=== PATIENT | female | born 1930 | race African-American/Black ===

== ENCOUNTER 2017-06-08 13:38 | Inpatient (IN) | payer MEDICARE, MEDICAID ==
[2017-06-08 17:02] LABS: Troponin I 0.033 ng/mL (< 0.028)
[2017-06-08 19:05] LABS: Troponin I 0.038 ng/mL (< 0.028)
--- NOTE | 2017-06-08 20:39 | CON ---
CARDIOLOGY CONSULTATION NOTE DATE OF CONSULTATION: 06/08/2017 REASON FOR CONSULTATION: Heart failure. PRIMARY ACCORDION REPAIRER: Dr. Guadalupe St. HISTORY OF PRESENT ILLNESS: Ms. Connelly is a very pleasant 87-year-old -Niuean female who com es to the hospital for shortness of breath. She has been short of breath, progressively getting wors e for the past 2 weeks per the family's report. They brought her in today as she was much more miguelito rgic and her breathing was much more labored. She was seen and chest x-ray showed she is in volume o verload as well as on physical exam, she was given a dose of Lasix and Cardiology is being consulted for this. She is a patient of Dr. St; he follows her for presence of a pacemaker. The last time , she was seen was actually back in 10/2016 and had a 1 year followup appointment with an echo. She is followed for blood pressure as well and she has runs of nonsustained VT that are treated with beta -hermann and moderate mitral regurgitation. Last echo on our system was in 2012 and she had normal L V function and mild to moderate MR. She was scheduled to have one in 10/2017. She denies any chest pain, tightness or pressure. Shortness of breath is better after some Lasix. PAST MEDICAL HISTORY: 1. Hypertension. 2. Former tobacco use. 3. Permanent pacemaker placement secondary to complete heart block. 4. History of pulmonary embolisms. 5. History of nonsustained ventricular tachycardia. ALLERGIES: VINCENT INHIBITORS. OUTPATIENT MEDICATIONS: Include; 1. Naproxen. 2. Omeprazole. 3. Hydralazine 25 mg b.i.d. 4. Carvedilol 25 mg b.i.d. 5. Furosemide 20 mg daily. 6. Amlodipine 10 mg a day. 7. Potassium chloride 10 mEq daily. SOCIAL HISTORY: No alcohol, tobacco or drugs. FAMILY HISTORY: Noncontributory. REVIEW OF SYSTEMS: A 12-point review of systems was done and is all negative unless stated in the hi story of present illness PHYSICAL EXAMINATION: VITAL SIGNS: Temperature 98.1, pulse 83, respiratory rate 14, satting 82% on room air, much better n ow on 2-liter nasal cannula, 96%. GENERAL: Awake, alert and oriented x3, in no distress. HEENT: Normocephalic and atraumatic. NECK: Supple. LUNGS: Have mild crackles at bilateral bases. CARDIOVASCULAR: S1, S2. No S3 or S4. ABDOMEN: Soft. Positive bowel sounds. EXTREMITIES: No edema. SKIN: Warm and dry. LABORATORY WORK: Reviewed. White count of 7.4, hemoglobin of 8.7, hematocrit of 27 and platelet cou nt of 216. Chemistry with a BUN of 38, creatinine of 1.4, BNP is 1169. Troponin is 0.02, 0.03, inde terminate range. Albumin of 2.4, globulin of 5.6, normal sodium and potassium. UA; trace ketones, s mall bilirubin, 4.0 urobilinogen and 1+ bacteria. IMAGING DATA: Chest x-ray was reviewed and showed interstitial prominence of the perihilar regions i n both lung bases, which could be chronic or superimposed edema or inflammatory changes. ASSESSMENT: 1. Acute on chronic diastolic heart failure. 2. Mild to moderate mitral regurgitation on last evaluation. PLAN: 1. Continue IV diuresis. I would give her Lasix 40 mg IV b.i.d. 2. We will get an echocardiogram to assess what her mitral valve is doing and what her LV function i s now. 3. Further recommendations after results of echocardiogram.
[2017-06-08] MEDS ORDERED: Ondansetron ODT 4 MG TAB SL PRN (21:54)
[2017-06-08] MEDS ORDERED: Acetaminophen 325 MG TAB PO PRN ×2 (21:54→23:18)
[2017-06-08] MEDS ORDERED: Ondansetron HCl/PF 4 MG/2 ML Vial IVP PRN ×2 (21:54→23:18)
[2017-06-08 22:39] LABS: Troponin I 0.039 ng/mL (< 0.028)
[2017-06-08] MEDS ORDERED: Ondansetron ODT 4 MG TAB PO PRN (23:18)
[2017-06-08] MEDS ORDERED: Bisacodyl 5 MG TAB PO PRN (23:18)
[2017-06-08] MEDS ORDERED: Acetaminophen 650 MG Suppository PR PRN (23:18)
[2017-06-08] MEDS ORDERED: Docusate 100 MG CAP PO SCH (23:45)
[2017-06-08] MEDS ORDERED: Carvedilol 25 MG TAB PO SCH (23:45)
[2017-06-08] MEDS ORDERED: hydrALAZINE 25 MG TAB PO SCH (23:45)
[2017-06-09 05:14] LABS: #Eosinphils 0.2 thou/uL (0.0-0.7); #Monocytes 0.6 thou/uL (0.11-0.59); #Neutrophils 4.9 thou/uL (1.40-6.50); %Basophils 0.4 % (0.0-1.0); %Eosinophils 3.2 % (0.0-10.0); %Lymphocytes 14.3 % (21.0-51.0); %Monocytes 9.1 % (0.0-10.0); %Neutrophils 73.1 % (42.0-75.0); Mean Corpuscular HGB CONC 34.9 g/dL (32.0-36.0); Mean Corpuscular Hemoglobin 32.8 pg (27.0-31.0); Mean Corpuscular Volume 94.1 fl (81.0-99.0); Mean Platelet Volume 6.4 fL (7.4-10.4); Platelet Count 204 thou/uL (130-400); Red Blood Cell (RBC) Count 2.75 mill/uL (4.20-5.40); White Blood Cell (WBC) Count 6.7 thou/uL (4.8-10.8)
[2017-06-09 05:43] LABS: Anion Gap 13 mmol/L (10-20); BUN (Urea Nitrogen) 36 mg/dL (9.8-20.1); Calc. Creatinine Clearance 0 mL/min (70-130); Calcium 8.8 mg/dL (7.8-10.44); Carbon Dioxide 22 mmol/L (23-31); Chloride 108 mmol/L (98-107); Estimated GFR-MDRD 52; Glucose 92 mg/dL (83-110); Potassium 3.9 mmol/L (3.5-5.1); Sodium 139 mmol/L (136-145)
[2017-06-09] MEDS ORDERED: Furosemide 20 MG/2 ML VIAL SLOW IVP SCH (06:00)
[2017-06-09] MEDS ORDERED: Furosemide 40 MG/4 ML VIAL SLOW IVP SCH (06:00)
--- NOTE | 2017-06-09 06:14 | HP ---
PRIMARY CARE PHYSICIAN: Dr. Whitman CHIEF COMPLAINT: Shortness of breath. HISTORY OF PRESENT ILLNESS: This is an 87-year-old -Prydeinig female with a known history of h eart disease of some sort with a pacemaker. She has seen Dr. Cruz and Dr. St previously and then years ago she had a problem with swelling that resolved with some furosemide. She reports that she was in her normal state of health until about a month ago she started having swelling in her feet, sh ortness of breath. She came into the [place] emergency room on the 05/06 over a month ago and was di agnosed with congestive heart failure. She was given daily furosemide and told to follow up with Dr. Whitman in the outpatient. She took the furosemide daily, the month supply and had resolution of t he swelling in her lower extremities, but she had persistence and recently worsening of the shortness of breath with activity or with lying down. So she came to the emergency room again today and she w as unable to follow with Dr. Whitman as she apparently is out with the flu right now. PAST MEDICAL HISTORY: 1. Congestive heart failure that had resolved with pacemaker placement. 2. Gastroesophageal reflux disease. 3. Hypertension. 4. Osteoarthritis. PAST SURGICAL HISTORY: 1. Hysterectomy. 2. Pacemaker placement. SOCIAL HISTORY: She used to smoke many, many years ago, unable to remember exactly when she quit, bu t it has been a very long time now. No alcohol or illicit drug use. She lives at home with her fami ly. FAMILY MEDICAL HISTORY: Significant for cardiac disease. ALLERGIES: LISINOPRIL causes angioedema. CURRENT MEDICATIONS: 1. Hydralazine 25 mg twice a day. 2. Amlodipine 10 mg daily. 3. Omeprazole 20 mg 2 tablets daily. 4. Carvedilol 25 mg twice a day. 5. Potassium chloride 10 mEq daily. 6. Naproxen 500 mg twice a day. 7. Furosemide 20 mg daily given from the emergency room last month. REVIEW OF SYSTEMS: Constitutional: No fevers, no chills. She has had some warm flashes with her shortness of breath. Eyes: No double vision or blurred vision. ENT: She has had some occasional drainage and congestion . No sore throat. Nothing specifically bad right now. Cardiovascular: She had a little bit of alexandrea st pain last week, none currently. No palpitations or racing heart. Pulmonary: Minimal cough produ ctive of clear sputum and shortness of breath as per HPI, mostly with exertion, some with lying flat. Gastrointestinal: No abdominal pain, no nausea, vomiting, no diarrhea or constipation. Genitourin haydee: No dysuria or hematuria. Musculoskeletal: No muscle aches or joint pains beyond her typical a rthritis pains. Skin: No rashes or other lesions that she has noticed. Neurologic: No numbness, t ingling or focal weakness, just feeling generalized weakness. PHYSICAL EXAMINATION: VITAL SIGNS: Blood pressure 128/85, pulse 83, respirations 14, temperature 98.1, O2 sat initially 82 % on room air. This came up to 99% on 3 liter nasal cannula. GENERAL: This is a well-developed elderly -Prydeinig female in no apparent distress, on oxygen . HEENT: Pupils equal, round, and reactive to light. Oropharynx clear without lesions, erythema or ex udate. NECK: Supple, no lymphadenopathy, no thyroid nodules or enlargement, no JVD. HEART: Regular rate and rhythm, no murmurs, rubs or gallops. LUNGS: She has some mild crackles in bilateral bases and decent air movement throughout. ABDOMEN: Soft, nontender to palpation, normoactive bowel sounds, no hepatosplenomegaly or other mass es. EXTREMITIES: No clubbing, cyanosis or edema. SKIN: No rashes or other lesions. NEUROLOGIC: She has intact strength in all extremities and no facial droop. LABORATORY DATA: CBC with a hemoglobin of 8.7, which is fairly stable for her MCV is normal. Comple te metabolic panel was notable for a carbon dioxide of 22, BUN of 38, creatinine of 1.4. This is up from 1.01 earlier last month. Glucose 118. Her liver functions are grossly normal except for a low albumin of 2.4. Brain natriuretic peptide is elevated at 1169. This is up from 978 at the beginning of May. Her cardiac marker sets were indeterminate. Urinalysis showed trace ketones, small le ukocyte esterase, but no white blood cells, it was dirty urine with squamous epithelial and a little bit of bacteria. X-ray, I did review the x-ray done in the emergency room along with the radiologist 's report. It does show stable appearance of the chest with interstitial prominence in the perihilar regions in both lung bases, may be all chronic in nature, but there is the possibility of a superimp osed acute edema that cannot be excluded. Her pacemaker is visualized. ASSESSMENT: 1. Acute on chronic congestive heart failure. We consulted Dr. Murphy. We will get an echocardiogr am. We will start her on Lasix 20 mg IV twice a day and will resume her home medications. 2. Acute renal failure, mild bump in creatinine, likely due to her Lasix use; however, she still nicole ears of volume overloaded in her chest x-ray and may go ahead and continue IV diuresis here, but we w ill keep a close eye on the creatinine to make sure does not too high. We will hold off on her napro xen. 3. Hypertension. We will resume patient's antihypertensive medications, but will hold them if her b lood pressure drops too low. Currently, she has been running in the 110s and 120s in the emergency r oom, so will go ahead and give them to her for now. Hydralazine may need to be held if blood pressur e drops too much. 4. Gastrointestinal prophylaxis. Put the patient on Pepcid twice a day in the hospital. 5. Deep venous thrombosis prophylaxis. Put patient on Lovenox and sequential compression devices wh ile on bed and we will have physical therapy get patient ambulating. CODE STATUS: I did discuss with the patient. She is FULL CODE. Should she be incapacitated, her risa Scott would be her medical power of deputy prosecuting attorney.
[2017-06-09] MEDS: Carvedilol 25 MG TAB PO SCH ×3 (07:00→21:04)
[2017-06-09] MEDS: Docusate 100 MG CAP PO SCH ×3 (07:01→21:05)
[2017-06-09] MEDS: hydrALAZINE 25 MG TAB PO SCH ×3 (07:02→21:04)
--- NOTE | 2017-06-09 08:47 | PDOC.PN ---
- Subjective Encounter Start Date: 06/09/17 Encounter Start Time: 08:46 Subjective: Seen and examined feeling better - Objective Resuscitation Status: Resuscitation Status FULL:Full Resuscitation Vital Signs & Weight: Vital Signs (12 hours) Temp Pulse Resp BP BP Pulse Ox 06/09/17 07:02 85 06/09/17 03:52 98.4 F 85 24 H 109/58 L 06/09/17 00:55 83 121/56 L 06/08/17 21:00 98.0 F 83 18 121/56 L 96 Weight Weight 128 lb 9.6 oz Result Diagrams: 06/09/17 04:32 06/09/17 04:32 Phys Exam - Physical Examination Constitutional: NAD HEENT: PERRLA, moist MMs, sclera anicteric, TM's clear Neck: no nodes, no JVD, supple, full ROM Respiratory: no wheezing, no rales, no rhonchi, clear to auscultation bilateral Cardiovascular: RRR, no significant murmur, no rub Gastrointestinal: soft, non-tender, no distention, positive bowel sounds Musculoskeletal: no edema, pulses present Dx/Plan - Plan plan discussed w/ family, PT/OT, high school social studies teacher, respiratory therapy, DVT proph w/lovenox Diuresis -: Cardiology following --repeat Echo pending * .
[2017-06-09] MEDS: Potassium Chloride 10 MEQ TAB PO SCH (09:06)
[2017-06-09] MEDS: Enoxaparin Sodium 40 MG/0.4 ML SYRINGE SC SCH (09:07)
[2017-06-09] MEDS: Amlodipine 10 MG TAB PO SCH (09:07)
[2017-06-09 13:36] LABS: Actual Bicarbonate (HCO3a) 22.2 mEq/L (22-26); CO2 Tension 35.1 mmHg (35.0-45.0); Calcium, Ionized 1.2 mmol/L (1.12-1.30); Hematocrit-ABG 26.6 % (36.0-47.0); Hemoglobin (Hb) 8.1 g/dL (12.0-16.0); O2 Tension (PaO2) 68.2 mmHg (80.0-100.0); pH, Arterial 7.42 (7.35-7.45)
[2017-06-09 13:38] LABS: Puncture Site RBA
[2017-06-09 13:39] LABS: ALV-art Gradient 246.925 (0-20)
--- NOTE | 2017-06-09 14:28 | RAD ---
CHEST ONE VIEW: Comparison: 06-08-17 History: Dyspnea. FINDINGS: Re-demonstration of left sided transvenous pacemaker with lead position, unchanged. There is atherosc lerosis of the aorta. Heart is enlarged. There are patchy interstitial and alveolar infiltrates. No s ignificant pleural fluid. No pneumothorax. No osseous abnormalities. IMPRESSION: Multilobar infiltrate. Multilobar pneumonia. Continued surveillance. POS: [facility]
[2017-06-09] MEDS: Furosemide 40 MG/4 ML VIAL SLOW IVP SCH (15:31)
--- NOTE | 2017-06-09 15:36 | PDOC.CTH ---
Cardiology Progress Note - Subjective She is hypoxic but her breathing she states is similar to yesterday. She developed a low grade fever. - Objective Vital Signs Temp Pulse Pulse Pulse Resp BP BP 06/09/17 12:40 06/09/17 11:45 100.0 F H 73 14 06/09/17 11:44 76 84 100/74 06/09/17 09:06 85 115/56 L 06/09/17 08:00 99.8 F H 85 16 06/09/17 07:02 85 06/09/17 03:52 98.4 F 85 24 H BP BP Pulse Ox 06/09/17 12:40 79 L 06/09/17 11:45 109/53 L 90 L 06/09/17 11:44 112/57 L 06/09/17 09:06 06/09/17 08:00 115/56 L 90 L 06/09/17 07:02 06/09/17 03:52 109/58 L Weight 128 lb 12.8 oz 06/08/17 06/09/17 06/10/17 06:59 06:59 06:59 Intake Total 312 Balance 312 - Physical Examination General/Neuro: alert & oriented x3 Neck: no JVD present Lungs: unlabored respirations Heart: RRR Abdomen: NT/ND Extremities: other: (no edema.) - Telemetry Telemetry Rhythm: NSR - Labs Result Diagrams: 06/09/17 04:32 06/09/17 04:32 Troponin/CKMB Troponin I 0.039 ng/mL (< 0.028) H 06/08/17 22:01 - Assessment/Plan 1. Acute on chronic diastolic heart failure. 2. Hypoxia, fever, possible pneumonia PLAN: - CXR - Continue IV diuresis. - Abx per primary team.
[2017-06-09] MEDS ORDERED: cefTRIAXone\\ROCEPHIN 1 GM in Sodium Chloride 0.9% 100 ML IVPB SCH (17:45)
[2017-06-09] MEDS: cefTRIAXone\\ROCEPHIN 1 GM, Syringe 0.4 ML in Sterile Water 9.6 ML SLOW IVP SCH (18:18)
[2017-06-10] MEDS: Furosemide 40 MG/4 ML VIAL SLOW IVP SCH ×2 (05:12→13:47)
[2017-06-10] MEDS: hydrALAZINE 25 MG TAB PO SCH ×2 (08:56→20:29)
[2017-06-10] MEDS: Potassium Chloride 10 MEQ TAB PO SCH (08:56)
[2017-06-10] MEDS: Enoxaparin Sodium 40 MG/0.4 ML SYRINGE SC SCH (08:57)
[2017-06-10] MEDS: Carvedilol 25 MG TAB PO SCH ×2 (08:57→20:28)
[2017-06-10] MEDS: Amlodipine 10 MG TAB PO SCH (08:57)
[2017-06-10] MEDS: Azithromycin 250 MG TAB PO SCH (08:57)
[2017-06-10] MEDS: Docusate 100 MG CAP PO SCH ×2 (09:00→20:28)
--- NOTE | 2017-06-10 11:23 | PDOC.PN ---
- Subjective Encounter Start Date: 06/10/17 Encounter Start Time: 11:22 Subjective: seen and examined feeling better - Objective Resuscitation Status: Resuscitation Status FULL:Full Resuscitation Vital Signs & Weight: Vital Signs (12 hours) Temp Pulse Pulse Pulse Pulse Pulse Resp 06/10/17 09:05 82 70 88 86 06/10/17 08:57 82 06/10/17 08:56 82 06/10/17 07:05 99.4 F 82 18 06/10/17 04:00 98.2 F 75 16 06/10/17 00:00 BP BP BP BP BP BP Pulse Ox 06/10/17 09:05 108/57 L 129/58 L 116/52 L 110/69 06/10/17 08:57 124/58 L 06/10/17 08:56 124/58 L 06/10/17 07:05 124/58 L 92 L 06/10/17 04:00 113/52 L 95 06/10/17 00:00 98 Pulse Ox Pulse Ox Pulse Ox Pulse Ox 06/10/17 09:05 90 L 94 L 90 L 91 L 06/10/17 08:57 06/10/17 08:56 06/10/17 07:05 06/10/17 04:00 06/10/17 00:00 Weight Weight 129 lb 9.6 oz I&O: 06/09/17 06/10/17 06/11/17 06:59 06:59 06:59 Intake Total 312 100 Output Total 225 Balance 312 -125 Result Diagrams: 06/09/17 04:32 06/09/17 04:32 Phys Exam - Physical Examination Constitutional: NAD HEENT: PERRLA, moist MMs, sclera anicteric, TM's clear, oral pharynx no lesions Neck: no nodes, no JVD, supple, full ROM Respiratory: no wheezing, no rales, no rhonchi, clear to auscultation bilateral Cardiovascular: RRR, no significant murmur, no rub Gastrointestinal: soft, non-tender, no distention, positive bowel sounds Musculoskeletal: no edema, pulses present Dx/Plan (1) CHF (congestive heart failure) Code(s): I50.9 - HEART FAILURE, UNSPECIFIED Status: Acute (2) Pneumonia Code(s): J18.9 - PNEUMONIA, UNSPECIFIED ORGANISM Status: Acute (3) Advanced age Code(s): R54 - AGE-RELATED PHYSICAL DEBILITY Status: Acute - Plan plan discussed w/ family, continue antibiotics, PT/OT, social work case manager, respiratory therapy Diuresis -: Appreciate Cardiology input * .
[2017-06-10] MEDS: cefTRIAXone\\ROCEPHIN 1 GM, Syringe 0.4 ML in Sterile Water 9.6 ML SLOW IVP SCH (19:47)
[2017-06-11] MEDS ORDERED: ISOVUE-370 76%-LOCM 1 ML ONE (06:30)
[2017-06-11] MEDS: Furosemide 40 MG/4 ML VIAL SLOW IVP SCH (06:52)
--- NOTE | 2017-06-11 07:36 | PDOC.PN ---
- Subjective Encounter Start Date: 06/11/17 Encounter Start Time: 07:35 Subjective: Seen and examined feeling better - Objective Resuscitation Status: Resuscitation Status FULL:Full Resuscitation Vital Signs & Weight: Vital Signs (12 hours) Temp Pulse Resp BP BP Pulse Ox 06/11/17 07:23 97.5 F L 77 18 111/57 L 93 L 06/11/17 04:00 97.7 F 69 18 115/53 L 93 L 06/11/17 00:00 97.4 F L 75 16 102/54 L 94 L 06/10/17 20:29 85 129/56 L Weight Weight 130 lb I&O: 06/10/17 06/11/17 06/12/17 06:59 06:59 06:59 Intake Total 100 150 Output Total 225 Balance -125 150 Result Diagrams: 06/09/17 04:32 06/09/17 04:32 Phys Exam - Physical Examination Constitutional: NAD HEENT: PERRLA, moist MMs, sclera anicteric, TM's clear Neck: no nodes, no JVD, supple, full ROM Respiratory: no wheezing, no rales, no rhonchi, clear to auscultation bilateral Cardiovascular: RRR, no significant murmur, no rub Gastrointestinal: soft, non-tender, no distention, positive bowel sounds Musculoskeletal: no edema, pulses present Dx/Plan (1) CHF (congestive heart failure) Code(s): I50.9 - HEART FAILURE, UNSPECIFIED Status: Acute (2) Pneumonia Code(s): J18.9 - PNEUMONIA, UNSPECIFIED ORGANISM Status: Acute (3) Advanced age Code(s): R54 - AGE-RELATED PHYSICAL DEBILITY Status: Acute - Plan plan discussed w/ family, continue antibiotics, PT/OT, social studies department chair, respiratory therapy Repeat CXR in am -: De-escalate diuresis -: Dispo planning * .
[2017-06-11] MEDS: Docusate 100 MG CAP PO SCH ×2 (08:33→20:55)
[2017-06-11] MEDS: Carvedilol 25 MG TAB PO SCH ×2 (08:33→20:55)
[2017-06-11] MEDS: Potassium Chloride 10 MEQ TAB PO SCH (08:33)
[2017-06-11] MEDS: Azithromycin 250 MG TAB PO SCH (08:34)
[2017-06-11] MEDS: Furosemide 40 MG TAB PO SCH ×2 (08:39→14:58)
[2017-06-11] MEDS: Enoxaparin Sodium 30 MG/0.3 ML SYRINGE SC SCH (08:39)
[2017-06-11] MEDS: Amlodipine 10 MG TAB PO SCH (11:56)
[2017-06-11] MEDS: hydrALAZINE 25 MG TAB PO SCH (11:57)
--- NOTE | 2017-06-11 12:39 | CON ---
DATE OF CONSULTATION: 06/10/2017 SERVICE: Pulmonary Medicine. REASON FOR CONSULTATION: Pulmonary hypertension. HISTORY OF PRESENT ILLNESS: The patient is an 87-year-old -[place] female. She was in her usual state of health until a week prior to admission when she started having a viral prodrome. She had some cough and congestion. She felt feverish, but did not suffer any fevers. She had orthopnea as well as dyspnea on exertion. She presented to the hospital, had findings consistent with volume overload. As additional information came back, it became increasingly clear that she was suffering primarily from right-sided heart dysfunction with severe pulmonary hypertension. The left ventricle was fairly preserved. She currently denies any fevers, chills, nausea, vomiting or chest discomfort. Otherwise, she is returning to her usual state of health. At baseline, she remains quite weak. She is able to get up and walk around, but does not do many of her activities of daily living. Recently, she has been in and out of the hospital with increasing weakness. PAST MEDICAL HISTORY: 1. Gastroesophageal reflux disease. 2. Hypertension. 3. Osteoarthritis. 4. Pulmonary hypertension, severe. PAST SURGICAL HISTORY: 1. Hysterectomy. 2. Pacemaker placement. SOCIAL HISTORY: She has a greater than [id number] history of smoking, but discontinued this habit over 10 years ago. She has no alcohol or illicit drug use. She has no exposures to chemicals, dust asbestos or tuberculosis. FAMILY HISTORY: Noncontributory. ALLERGIES: LISINOPRIL causes angioedema. MEDICATIONS: List of her inpatient medications were reviewed. No updates were made at this time. REVIEW OF SYSTEMS: Including general, head, ears, eyes, nose, throat, cardiovascular, respiratory, GI, , musculoskeletal, neurologic and skin is negative except as mentioned in the HPI. PHYSICAL EXAMINATION: VITAL SIGNS: Afebrile, pulse 77, blood pressure 111/57, respirations 18, saturation 93% on 40% FiO2. GENERAL: The patient is awake and alert. She is in no apparent distress. LUNGS: Decent air entry. There is no prolonged expiratory phase or wheezing. Crackles are present bilaterally. HEART: Normal rate, regular. ABDOMEN: Soft, nontender, nondistended. Bowel sounds are positive. MUSCULOSKELETAL: No cyanosis or clubbing. There is no pitting in the bilateral lower extremities. NEUROLOGIC: Grossly nonfocal. LABORATORY DATA: WBC 6.7, hemoglobin 9.0, platelets 204,000. D-dimer 2.84. PH 7.42, pCO2 of 53, pO2 of 68.2. Creatinine 1.19. Basic metabolic profile is otherwise unremarkable. Troponin is stable at 0.039. IMAGING: Chest x-ray demonstrates patchy alveolar infiltrate in the bilateral lung hill. There is also increased interstitial markings. The heart is generous in size. This is a portable film; however. There is a widened carinal angle suggestive of left atrial enlargement and/or mediastinal lymphadenopathy. Dual lead pacemaker is in good position. ASSESSMENT: 1. Acute hypoxic respiratory failure. 2. Pulmonary infiltrate. 3. Pulmonary hypertension. DISCUSSION AND PLAN: The patient has infiltrate. Typically, this will be caused by pulmonary hypertension in the left. The patient is having such severe right heart dysfunction that is preventing the filling of the left heart. It is interesting that her left atrium is dilated and she has mitral annular calcification. I do wonder whether or not there is a significant component of mitral stenosis here. That being said, pulmonary hypertension is quite impressive. We will go ahead and put her through a workup with HIV, rheumatoid factor, and CHAZ profile. This will be added to the morning laboratories. Because of her recent viral prodrome, we will get a respiratory virus panel to see whether or not there is some acute inflammatory process happening in her lungs. If she has shift in white blood cell count or develops any other signs of increasing sepsis syndrome, empiric antibiotics directed at lung pathology is warranted. Her creatinine is improving. As such, we will move forward a CT PE protocol. We are really looking for chronic thromboembolic disease. I would do a VQ scan, but the infiltrates on the chest x-ray preclude this. Pulmonary will continue to follow. The patient remains in house. [facility]
--- NOTE | 2017-06-11 15:49 | CT ---
CTA CHEST WITH 3D VOLUME RENDERING: Clinical history: Pulmonary hypertension. Progressive shortness of breath. FINDINGS: There are abnormal soft tissue opacities which encroach upon and invade the pulmonary arterial system , notably involving the proximal aspect of the main left pulmonary artery as well as segmental divisi on of the left pulmonary arteries serving the left upper and superior segment left lower lobe. There is also nodular irregularity along the posterior confines of the distal main left pulmonary artery. A djacent these areas of apparently invading soft tissue of the pulmonary arterial wall, there are nodu lar areas of soft tissue density of the mediastinum and left hilum indicative of adenopathy, although difficult to reliably discern due to the arterial phase of enhancement. The pulmonary arteries are p rominent in size, with the pulmonary trunk demonstrating larger caliber than the adjacent aorta which does correlate to the provided clinical setting of pulmonary arterial hypertension. There is extensive pulmonary parenchymal consolidation with areas of dense consolidation containing a ir bronchograms bilaterally as well as diffuse ground glass alveolar opacities and areas of interstit ial septal thickening throughout each lung. There is trace pleural fluid bilaterally superimposed upo n areas of pleural thickening/irregularity within each hemithorax. There is no pneumothorax. The trac heal bronchial air column is grossly patent, centrally. There is diffuse vascular calcification. No scattered osseous degenerative change present. Within the imaged upper abdomen, there is cyst form ation at the kidneys bilaterally, incompletely assessed. Splenic arterial calcification. There is con trast opacification of the suprahepatic IVC and hepatic veins indicative of right heart strain with r esultant passive congestion. There is enlargement of cardiac chambers. Mild pericardial fluid is present. There is a stable area o f focal eventration of the left lateral aspect of the aortic arch. IMPRESSION: 1. Areas of eccentric soft tissue, lobular filling defect of the pulmonary arterial system as discuss ed above which are concerning for entities such as tumor invasion/tumor embolus given the above descr ibed concommenent findings. 2. Extensive multifocal consolidation as above favoring atypical multi focal bilateral pneumonia. 3. Telephone call of findings placed to the patient's strap stitcher, Dr. Jeffery Montoya at 1345 hours 118. POS: [facility]
[2017-06-11] MEDS: cefTRIAXone\\ROCEPHIN 1 GM, Syringe 0.4 ML in Sterile Water 9.6 ML SLOW IVP SCH (17:52)
[2017-06-12 04:59] LABS: #Eosinphils 0.1 thou/uL (0.0-0.7); #Lymphocytes 0.9 thou/uL (1.20-3.40); #Monocytes 0.6 thou/uL (0.11-0.59); #Neutrophils 5.9 thou/uL (1.40-6.50); %Basophils 0.2 % (0.0-1.0); %Eosinophils 1.5 % (0.0-10.0); %Lymphocytes 11.8 % (21.0-51.0); %Monocytes 7.5 % (0.0-10.0); Hemoglobin 7.8 g/dL (12.0-16.0); Mean Corpuscular HGB CONC 32.5 g/dL (32.0-36.0); Mean Corpuscular Hemoglobin 30.7 pg (27.0-31.0); Mean Corpuscular Volume 94.5 fl (81.0-99.0); Mean Platelet Volume 6.8 fL (7.4-10.4); Platelet Count 210 thou/uL (130-400); RBC Distribution Width 12.9 % (11.5-14.5); Red Blood Cell (RBC) Count 2.54 mill/uL (4.20-5.40); White Blood Cell (WBC) Count 7.5 thou/uL (4.8-10.8)
[2017-06-12 05:33] LABS: Anion Gap 15 mmol/L (10-20); BUN (Urea Nitrogen) 53 mg/dL (9.8-20.1); Calc. Creatinine Clearance 24 mL/min (70-130); Calcium 8.9 mg/dL (7.8-10.44); Carbon Dioxide 23 mmol/L (23-31); Chloride 104 mmol/L (98-107); Estimated GFR-MDRD 37; Glucose 100 mg/dL (83-110); Sodium 138 mmol/L (136-145)
[2017-06-12 05:53] LABS: HIV (1/2) Antibody/Antigen Non-Reactive (NonReactive); HIV 1/2 INDEX 0.07 S/CO (<1.00)
[2017-06-12] MEDS: Furosemide 40 MG TAB PO SCH ×2 (08:25→14:14)
[2017-06-12] MEDS: Potassium Chloride 10 MEQ TAB PO SCH (08:25)
[2017-06-12] MEDS: Carvedilol 25 MG TAB PO SCH (08:25)
[2017-06-12] MEDS: Azithromycin 250 MG TAB PO SCH (08:25)
[2017-06-12] MEDS: Docusate 100 MG CAP PO SCH ×2 (08:26→20:30)
[2017-06-12] MEDS: Enoxaparin Sodium 30 MG/0.3 ML SYRINGE SC SCH (08:26)
--- NOTE | 2017-06-12 08:42 | RAD ---
PA AND LATERAL CHEST XRAY: DATE: 06/12/17. HISTORY: Pneumonia. COMPARISON: 06/09/17. FINDINGS: Dual-lead left subclavian cardiac pacemaking device remains in place and unchanged in position. Ther e are increased interstitial and patchy parenchymal opacities seen throughout the lungs bilaterally, greater in the mid lung zones. Opacities in the mid lung zones do appear increased from the prior st udy. Findings are again worrisome for bilateral pneumonia, and atypical pneumonia is a possibility. Cardiac silhouette does appear enlarged. Vascular calcification is seen in the thoracic aorta. The re is osteopenia. No other interval change. IMPRESSION: Bilateral interstitial and alveolar opacities with greater confluent opacity in the mid lung zones bi laterally. Findings are again worrisome for pneumonia, and atypical pneumonia is a possibility. Fol lowup to resolution is recommended. POS: [facility]
--- NOTE | 2017-06-12 13:52 | PRG ---
DATE OF SERVICE: 06/12/2017 SUBJECTIVE: Ms. Connelly is breathing okay, but she is on 50% oxygen Ventimask and oxygen saturation is only 91%. She denies chest pain or shortness of breath. PHYSICAL EXAMINATION: VITAL SIGNS: Blood pressure is 104/51, pulse 78. LUNGS: There are some bibasilar rales. CARDIAC: Normal S1, normal S2. ABDOMEN: Soft, nontender. EXTREMITIES: There is no edema. PERTINENT LABORATORY DATA: Hemoglobin is down to 7.8. The chest x-ray today reveals patchy infiltrates. CT scan yesterday; multifocal consolidation. Reviewing the reports, echocardiogram showed 50-55% ejection fraction with severe pulmonary hypertens ion. ASSESSMENT: 1. Congestive heart failure, diastolic. 2. Patchy infiltrates on chest x-ray. 3. Anemia. PLAN: 1. The patient is on amlodipine, that was actually just stopped due to blood pressure being low, it appears 2. She is on carvedilol. We will reduce the dose as she has normal left ventricular systolic functi on. 3. Check CBC tomorrow. 4. She is on oral furosemide. Prognosis guarded. The patient remains on antibiotics.
--- NOTE | 2017-06-12 13:53 | PDOC.PN ---
- Subjective Encounter Start Date: 06/12/17 Encounter Start Time: 13:44 Subjective: seen and examined--still not participating in PT - Objective Resuscitation Status: Resuscitation Status FULL:Full Resuscitation Vital Signs & Weight: Vital Signs (12 hours) Temp Pulse Resp BP Pulse Ox 06/12/17 11:31 98.1 F 78 17 104/51 L 90 L 06/12/17 07:15 98.6 F 68 18 107/54 L 92 L 06/12/17 04:00 97.4 F L 73 16 95/52 L 97 Weight Weight 131 lb 1.6 oz I&O: 06/11/17 06/12/17 06/13/17 06:59 06:59 06:59 Intake Total 150 240 Balance 150 240 Result Diagrams: 06/12/17 04:22 06/12/17 04:22 Dx/Plan (1) CHF (congestive heart failure) Code(s): I50.9 - HEART FAILURE, UNSPECIFIED Status: Acute (2) Pneumonia Code(s): J18.9 - PNEUMONIA, UNSPECIFIED ORGANISM Status: Acute (3) Advanced age Code(s): R54 - AGE-RELATED PHYSICAL DEBILITY Status: Acute - Plan plan discussed w/ family, continue antibiotics, PT/OT, social insurance analyst, respiratory therapy Reduce Lasix given labile hemodynamics -: Encourage ambulation -: Adjust antihypertensives down -: Dispo planning * .
[2017-06-12] MEDS: cefTRIAXone\\ROCEPHIN 1 GM, Syringe 0.4 ML in Sterile Water 9.6 ML SLOW IVP SCH (18:55)
[2017-06-12] MEDS: Carvedilol 6.25 MG TAB PO SCH (20:29)
[2017-06-13 05:26] LABS: #Eosinphils 0.3 thou/uL (0.0-0.7); #Monocytes 0.5 thou/uL (0.11-0.59); #Neutrophils 5.4 thou/uL (1.40-6.50); %Basophils 0.1 % (0.0-1.0); %Eosinophils 3.9 % (0.0-10.0); %Lymphocytes 14.1 % (21.0-51.0); %Monocytes 6.8 % (0.0-10.0); %Neutrophils 75.1 % (42.0-75.0); Mean Corpuscular HGB CONC 32.7 g/dL (32.0-36.0); Mean Corpuscular Hemoglobin 30.6 pg (27.0-31.0); Mean Corpuscular Volume 93.7 fl (81.0-99.0); Mean Platelet Volume 7.4 fL (7.4-10.4); Platelet Count 238 thou/uL (130-400); RBC Distribution Width 13.2 % (11.5-14.5); Red Blood Cell (RBC) Count 2.61 mill/uL (4.20-5.40); White Blood Cell (WBC) Count 7.2 thou/uL (4.8-10.8)
[2017-06-13 05:46] LABS: Anion Gap 12 mmol/L (10-20); BUN (Urea Nitrogen) 52 mg/dL (9.8-20.1); Calc. Creatinine Clearance 26 mL/min (70-130); Calcium 8.7 mg/dL (7.8-10.44); Carbon Dioxide 22 mmol/L (23-31); Chloride 103 mmol/L (98-107); Estimated GFR-MDRD 40; Glucose 108 mg/dL (83-110); Iron 19 ug/dL (50-170); Iron Binding Capacity, Total 131 mcg/dL (265-497); Sodium 133 mmol/L (136-145)
[2017-06-13] MEDS: Potassium Chloride 10 MEQ TAB PO SCH (08:59)
[2017-06-13] MEDS: Furosemide 20 MG TAB PO SCH ×2 (09:00→14:55)
[2017-06-13] MEDS: Carvedilol 6.25 MG TAB PO SCH (09:00)
[2017-06-13] MEDS: Azithromycin 250 MG TAB PO SCH (09:00)
[2017-06-13] MEDS: Docusate 100 MG CAP PO SCH ×2 (09:00→21:06)
[2017-06-13] MEDS: Enoxaparin Sodium 30 MG/0.3 ML SYRINGE SC SCH (09:01)
--- NOTE | 2017-06-13 13:55 | PRG ---
DATE OF SERVICE: 06/13/2017 SUBJECTIVE: Ms. Connelly seems to be feeling somewhat better today. OBJECTIVE: VITAL SIGNS: Blood pressure is still 105/54, pulse 70, oxygen saturation is 94% on the Ventimask. LUNGS: Some rales, especially at the left side. She is lying on her left. CARDIAC: Normal S1, normal S2. There is no murmur. ASSESSMENT: 1. Congestive heart failure, diastolic, still appears to be in heart failure. 2. Renal failure stage 3, glomerular filtration rate is 40. 3. Anemia, iron levels are low, but the ferritin level is elevated. PLAN: 1. She is on oral furosemide, low dose. 2. In view of low blood pressure, going to go ahead and stop the carvedilol.
[2017-06-13 15:21] LABS: Anti-Striation AB Negative (Neg:<1:40); Antinuclear AB Positive (Negative); Antiparietal Cell Ab 7.5 Units (0.0-20.0); Complement C4 30 mg/dL (14-44); DSDNA AutoAb 1 IU/mL (0-9); SCL-70 IgG AutoAb <0.2 AI (0.0-0.9); Smith IgG AutoAb <0.2 AI (0.0-0.9); Smooth Muscle AB 31 Units (0-19); Thyroid Peroxidase Abs 15 IU/mL (0-34); U1 RNP/SNRNP IgG AutoAb 1.3 AI (0.0-0.9)
[2017-06-13] MEDS ORDERED: predniSONE 20 MG TAB PO SCH (17:15)
--- NOTE | 2017-06-13 17:18 | PDOC.PN ---
- Subjective Encounter Start Date: 06/13/17 Encounter Start Time: 17:15 Subjective: Seen and examined feeling ok but still on ventimask - Objective Resuscitation Status: Resuscitation Status FULL:Full Resuscitation Vital Signs & Weight: Vital Signs (12 hours) Temp Pulse Resp BP BP Pulse Ox 06/13/17 12:18 71 17 105/54 L 95 06/13/17 09:00 108/51 L 06/13/17 07:15 98.9 F 76 24 H 108/51 L 95 Weight Weight 131 lb 9.6 oz I&O: 06/12/17 06/13/17 06/14/17 06:59 06:59 06:59 Intake Total 240 240 Balance 240 240 Result Diagrams: 06/13/17 04:40 06/13/17 04:40 Phys Exam - Physical Examination Constitutional: NAD HEENT: PERRLA, moist MMs, sclera anicteric, oral pharynx no lesions Neck: no nodes, no JVD, supple, full ROM Respiratory: no wheezing, no rales, no rhonchi Cardiovascular: RRR, no significant murmur, no rub Gastrointestinal: soft, non-tender, no distention Musculoskeletal: no edema, pulses present Dx/Plan (1) CHF (congestive heart failure) Code(s): I50.9 - HEART FAILURE, UNSPECIFIED Status: Acute (2) Pneumonia Code(s): J18.9 - PNEUMONIA, UNSPECIFIED ORGANISM Status: Acute (3) Advanced age Code(s): R54 - AGE-RELATED PHYSICAL DEBILITY Status: Acute - Plan plan discussed w/ family, continue antibiotics, PT/OT, renal social worker, respiratory therapy, incentive spirometry Change to oral antibiotics -: wean down the oxygen to nasal cannula -: Dispo planning * .
[2017-06-13] MEDS: cefTRIAXone\\ROCEPHIN 1 GM, Syringe 0.4 ML in Sterile Water 9.6 ML SLOW IVP SCH (18:03)
--- NOTE | 2017-06-13 18:26 | PRG ---
DATE OF SERVICE: 06/12/2017 SERVICE: Pulmonary Medicine. INTERVAL HISTORY: The patient is doing okay from a respiratory standpoint. She denies any chest josue n or shortness of breath. I had a conversation with the patient and her daughter today. I discussed the finding on CTA of the chest. Otherwise, there were no significant overnight events. PHYSICAL EXAMINATION: VITAL SIGNS: Afebrile, pulse 78, blood pressure 104/51, respirations 17, saturation 90% on 15 liters via ventimask. HEENT: Normocephalic, atraumatic. Sclerae are white, conjunctivae pink. Oral mucosa is moist witho ut lesions. LUNGS: Decent air entry. Crackles are present. HEART: Normal rate and regular. ABDOMEN: Soft, nontender, nondistended. Bowel sounds are positive. MUSCULOSKELETAL: No cyanosis or clubbing. There is no pitting in the bilateral lower extremities. NEUROLOGIC: Grossly nonfocal. LABORATORY DATA: WBC 7.5, hemoglobin 7.8, platelets 210,000. Creatinine 1.61 and trending upward. Basic metabolic profile is otherwise unremarkable. Troponin is stable at 0.039. CHAZ screen is posit erick with an SSa antibody as well as an antismooth muscle antibody, and anti-LIVESTOCK SALES REPRESENTATIVE antibody profile. HI V 1 and 2 are nonreactive. Rheumatoid factor is unremarkable. Respiratory virus panel is positive f or rhinovirus. IMAGIN. CTA of the chest demonstrates bilateral ground glass opacifications that are scattered throughout the lungs. There are areas of interstitial fullness. Some areas of crazy paving textured to them. Pulmonary artery is dilated. The left atrium appeared to be enlarged though the left ventricle seem s to be normal. There is dilation of the right ventricle as well. There is a pulmonary artery lesio n that does not have the appearance of chronic thromboembolic disease. There is also a mass-like str ucture that is encasing most of the branches of the left pulmonary artery. 2. Chest x-ray demonstrates extensive bilateral infiltrates. ASSESSMENT: 1. Acute hypoxic respiratory failure. 2. Pulmonary infiltrate, characterized by ground glass changes, interstitial fullness, and areas of crazy paving with other overt areas of consolidation. 3. Pulmonary hypertension. 4. Pulmonary artery soft tissue mass. 5. Acute on chronic diastolic heart failure, returning to euvolemia. PLAN: I have had a conversation with the patient and her daughter about the findings on the CT scan. Given that we have the rhinovirus, I would like the patient to be diuresed to euvolemia. We can re peat imaging in the outpatient setting in 1-2 weeks. The findings that we see they are quite ominous . If they represented inflammatory lung disease or neoplastic process, the patient really does not h ave enough functional capacity to pursue a diagnosis. I will empirically initiate her on [address] eroids on a daily basis to see if this provides her if any improvement in her oxygenation. I really do not think that the infiltrates are volume mediated. Her hypoxemia has not improved significantly with aggressive diuretics. Pulmonary will continue to follow while the patient remains inhouse.
[2017-06-13] MEDS ORDERED: Carvedilol 6.25 MG TAB PO SCH (21:00)
[2017-06-13] MEDS: Cefdinir 300 MG CAP PO SCH (21:06)
--- NOTE | 2017-06-14 08:11 | PDOC.PN ---
- Subjective Encounter Start Date: 06/14/17 Encounter Start Time: 08:08 Subjective: Seen and examined -still very tired and requiring a lot of oxygen supplemen - Objective Resuscitation Status: Resuscitation Status FULL:Full Resuscitation Vital Signs & Weight: Vital Signs (12 hours) Temp Pulse Resp BP BP Pulse Ox 06/14/17 04:00 97.6 F 75 21 H 103/51 L 94 L 06/13/17 21:06 103/52 L Weight Weight 131 lb I&O: 06/13/17 06/14/17 06/15/17 06:59 06:59 06:59 Intake Total 240 240 Balance 240 240 Result Diagrams: 06/13/17 04:40 06/13/17 04:40 Phys Exam - Physical Examination Constitutional: NAD HEENT: PERRLA, moist MMs, sclera anicteric, TM's clear Neck: no nodes, no JVD, supple, full ROM Respiratory: no wheezing Cardiovascular: RRR, no significant murmur, no rub Gastrointestinal: soft, non-tender, no distention, positive bowel sounds Musculoskeletal: no edema, pulses present Dx/Plan (1) CHF (congestive heart failure) Code(s): I50.9 - HEART FAILURE, UNSPECIFIED Status: Acute (2) Pneumonia Code(s): J18.9 - PNEUMONIA, UNSPECIFIED ORGANISM Status: Acute (3) Advanced age Code(s): R54 - AGE-RELATED PHYSICAL DEBILITY Status: Acute - Plan plan discussed w/ family, continue antibiotics, PT/OT, social service assistant, respiratory therapy Reduce B-hermann dose in lieu of low BP -: Increase PT -: recovery manager consult dispo planning * .
[2017-06-14] MEDS: Docusate 100 MG CAP PO SCH ×2 (09:37→20:39)
[2017-06-14] MEDS: Potassium Chloride 10 MEQ TAB PO SCH (09:37)
[2017-06-14] MEDS: Enoxaparin Sodium 30 MG/0.3 ML SYRINGE SC SCH (09:38)
[2017-06-14] MEDS: Carvedilol 3.125 MG TAB PO SCH ×2 (09:38→20:39)
[2017-06-14] MEDS: Furosemide 20 MG TAB PO SCH ×2 (09:38→14:44)
[2017-06-14] MEDS: predniSONE 20 MG TAB PO SCH (09:40)
[2017-06-14] MEDS: Cefdinir 300 MG CAP PO SCH ×2 (10:16→20:39)
--- NOTE | 2017-06-14 22:56 | PRG ---
DATE OF SERVICE: 06/14/2017 SERVICE: Pulmonary Medicine. INTERVAL HISTORY: The patient is doing great from a respiratory standpoint. She has been weaned quyen n to 3 liters nasal cannula. Otherwise, there has been no interval change. Her strength is improvin g and got out of a bed today into a chair. There have been no overnight events. PHYSICAL EXAMINATION: VITAL SIGNS: Afebrile, pulse 69, blood pressure 119/70, respirations 18, saturation 98% on 3 liters nasal cannula. GENERAL: The patient is awake and alert, in no apparent distress. LUNGS: Decent air entry. There is no prolonged expiratory phase. Crackles are still present. No w heezing or rhonchi. HEART: Normal rate, regular. ABDOMEN: Soft, nontender, nondistended. Bowel sounds are positive. MUSCULOSKELETAL: No cyanosis or clubbing. Pitting edema has resolved. GENITOURINARY: No Altman catheter in place. NEUROLOGIC: Grossly nonfocal. LABORATORY DATA: CHAZ screen is positive. THERAPEUTIC RECREATION LEADER profile, as well as anti-smooth muscle antibody, are a bnormal. SSA is also elevated. HIV 1 and 2 are nonreactive. ASSESSMENT: 1. Acute hypoxic respiratory failure, improving. 2. Pulmonary infiltrate, characterized by ground glass changes, interstitial fullness, and areas of crazy paving with other overt consolidating changes. 3. Pulmonary hypertension. 4. Pulmonary artery soft tissue mass. 5. Acute on chronic diastolic heart failure, currently euvolemic. 6. Rhinovirus. PLAN: The patient has returned to euvolemia. I will repeat a chest x-ray tomorrow morning as her ox ygen requirements have improved dramatically. I would like to repeat a chest x-ray in 2-4 weeks in t outpatient setting. At that time, additional investigation can be considered into the soft tissue mass of the pulmonary artery if her functional status allows for it. For the time being, [facility] will be continued for at least a total duration of 4 days. I will continue to follow while she re sidney in-house, but she is fast approaching discharge criteria.
[2017-06-15 04:59] LABS: #Lymphocytes 0.8 thou/uL (1.20-3.40); #Monocytes 0.4 thou/uL (0.11-0.59); #Neutrophils 6.7 thou/uL (1.40-6.50); %Eosinophils 0.3 % (0.0-10.0); %Lymphocytes 9.5 % (21.0-51.0); %Monocytes 5.6 % (0.0-10.0); %Neutrophils 84.6 % (42.0-75.0); Hemoglobin 7.4 g/dL (12.0-16.0); Mean Corpuscular HGB CONC 32.4 g/dL (32.0-36.0); Mean Corpuscular Hemoglobin 30.3 pg (27.0-31.0); Mean Corpuscular Volume 93.5 fl (81.0-99.0); Mean Platelet Volume 6.6 fL (7.4-10.4); Platelet Count 219 thou/uL (130-400); RBC Distribution Width 13.1 % (11.5-14.5); Red Blood Cell (RBC) Count 2.45 mill/uL (4.20-5.40); White Blood Cell (WBC) Count 7.9 thou/uL (4.8-10.8)
[2017-06-15 05:12] LABS: Anion Gap 12 mmol/L (10-20); BUN (Urea Nitrogen) 63 mg/dL (9.8-20.1); Calc. Creatinine Clearance 26 mL/min (70-130); Calcium 8.7 mg/dL (7.8-10.44); Carbon Dioxide 25 mmol/L (23-31); Chloride 100 mmol/L (98-107); Estimated GFR-MDRD 41; Glucose 111 mg/dL (83-110); Magnesium 2.2 mg/dL (1.6-2.6); Phosphorus 3.7 mg/dL (2.3-4.7); Sodium 132 mmol/L (136-145)
--- NOTE | 2017-06-15 08:59 | PDOC.PN ---
- Subjective Encounter Start Date: 06/15/17 Encounter Start Time: 08:58 Subjective: Seen and examined feeling better - Objective Resuscitation Status: Resuscitation Status FULL:Full Resuscitation Vital Signs & Weight: Vital Signs (12 hours) Temp Pulse Resp BP Pulse Ox 06/15/17 04:00 97.5 F L 66 19 143/60 H 100 06/15/17 00:00 18 Weight Weight 130 lb 9.6 oz I&O: 06/14/17 06/15/17 06/16/17 06:59 06:59 06:59 Intake Total 240 1300 Balance 240 1300 Result Diagrams: 06/15/17 04:16 06/15/17 04:16 Phys Exam - Physical Examination Constitutional: NAD HEENT: PERRLA, moist MMs, sclera anicteric, TM's clear, oral pharynx no lesions Neck: no nodes, no JVD, supple, full ROM Respiratory: no wheezing, no rales, no rhonchi, clear to auscultation bilateral Cardiovascular: RRR, no significant murmur, no rub Gastrointestinal: soft, non-tender, no distention, positive bowel sounds Musculoskeletal: no edema, pulses present Dx/Plan (1) CHF (congestive heart failure) Code(s): I50.9 - HEART FAILURE, UNSPECIFIED Status: Acute (2) Pneumonia Code(s): J18.9 - PNEUMONIA, UNSPECIFIED ORGANISM Status: Acute (3) Advanced age Code(s): R54 - AGE-RELATED PHYSICAL DEBILITY Status: Acute - Plan plan discussed w/ family, continue antibiotics, PT/OT, social insurance analyst, respiratory therapy Repeat CXR today -: Possible D/c next 24hrs -: Repeat CXR next 2-4 weeks -: Continue steroids * .
[2017-06-15] MEDS: Cefdinir 300 MG CAP PO SCH ×2 (09:02→21:13)
[2017-06-15] MEDS: predniSONE 20 MG TAB PO SCH (09:02)
[2017-06-15] MEDS: Potassium Chloride 10 MEQ TAB PO SCH (09:02)
[2017-06-15] MEDS: Enoxaparin Sodium 30 MG/0.3 ML SYRINGE SC SCH (09:03)
[2017-06-15] MEDS: Furosemide 20 MG TAB PO SCH (09:03)
[2017-06-15] MEDS: Docusate 100 MG CAP PO SCH ×2 (09:03→21:13)
[2017-06-15] MEDS: Carvedilol 3.125 MG TAB PO SCH (09:03)
--- NOTE | 2017-06-15 10:29 | RAD ---
TWO VIEWS CHEST: Date: 06-15-17 Provided Clinical History: Pneumonia. FINDINGS: Comparison is made with the examination performed 06-12-17. Cardiac and mediastinal silhouette is unchanged in appearance. Left subclavian cardiac pacing device is again seen, similar in position. Bilateral airspace and interstitial opacity is redemonstrated, ap pearing similar to the prior study. There is no pleural fluid or pneumothorax apparent. IMPRESSION: Persistent diffuse bilateral airspace and interstitial opacity. POS: [facility]
--- NOTE | 2017-06-15 20:29 | PRG ---
DATE OF SERVICE: 06/15/2017 SUBJECTIVE: Ms. Connelly is feeling better. Her breathing is improved. PHYSICAL EXAMINATION: VITAL SIGNS: Her blood pressure earlier 101/56, then 129/81. LUNGS: Clear. CARDIAC: Normal S1, normal S2. ABDOMEN: Soft, nontender. EXTREMITIES: No edema. PERTINENT LABORATORY: Her hemoglobin was 7.4. Her iron levels were low. The ferritin is high, but that could be an acute phase reactant. ASSESSMENT: 1. Anemia 2. Pulmonary hypertension. 3. Previous pacemaker. 4. Stage 3 renal failure. PLAN: 1. We will stop carvedilol in view of the normal left ventricular function. 2. She is on low dose diuretics. 3. Give intravenous iron. 4. May need to stop potassium. 5. Hopefully home tomorrow. Prognosis is guarded in this pleasant patient.
--- NOTE | 2017-06-15 20:36 | PRG ---
DATE OF SERVICE: 06/15/2017 SERVICE: Pulmonary Medicine. INTERVAL HISTORY: The patient's strength and oxygen requirements continue to improve. She currently denies any shortness of breath or chest discomfort. She is pretty happy with the way things are progressing. PHYSICAL EXAMINATION: VITAL SIGNS: Afebrile, pulse 80, blood pressure 129/81, respirations 18, saturation 95% on 1-1/2 liters nasal cannula. GENERAL: The patient is awake and alert, in no apparent distress. LUNGS: Decent air entry. Crackles remain. HEART: Normal rate, regular. ABDOMEN: Soft, nontender, nondistended. Bowel sounds are positive. MUSCULOSKELETAL: No cyanosis or clubbing. There is no pitting in the bilateral lower extremities. NEUROLOGIC: Grossly nonfocal. LABORATORY DATA: WBC 7.9, hemoglobin 7.4, platelets 219,000. Creatinine 1.46 and down trending. Basic metabolic profile including magnesium and phosphorus are unremarkable. CHAZ screen was abnormal. HIV 1 and 2 negative. Respiratory virus PCR is positive for rhinovirus. IMAGING: Chest x-ray demonstrates persistent diffuse bilateral airspace and interstitial opacifications that have not changed significantly. ASSESSMENT: 1. Acute hypoxic respiratory failure, improving. 2. Pulmonary infiltrates, characterized by ground glass changes, interstitial fullness, and areas of crazy paving with other consolidating changes. 3. Pulmonary hypertension. 4. Pulmonary artery soft tissue mass. 5. Acute on chronic diastolic heart failure. 6. Rhinovirus. PLAN: The patient has had a significant improvement in oxygen requirements. That being said, her chest x-ray is roughly stable. I would elect to repeat a chest x-ray in the outpatient setting in 2-4 weeks. At that time, if functional status allows, additional investigation into her pulmonary hypertension, pulmonary infiltrates, and pulmonary soft tissue mass will be considered. I would continue the steroids for the next 2-3 weeks and slowly taper them after that. We will empirically treat inflammatory lung diseases. Truth be told, I do not think the patient is going to be a good candidate for additional investigation moving forward given her current level of debility. [facility]
[2017-06-16 05:54] LABS: Anion Gap 13 mmol/L (10-20); BUN (Urea Nitrogen) 61 mg/dL (9.8-20.1); Calc. Creatinine Clearance 30 mL/min (70-130); Calcium 9.4 mg/dL (7.8-10.44); Carbon Dioxide 23 mmol/L (23-31); Chloride 103 mmol/L (98-107); Estimated GFR-MDRD 48; Glucose 111 mg/dL (83-110); Magnesium 2.4 mg/dL (1.6-2.6); Potassium 5.6 mmol/L (3.5-5.1); Sodium 133 mmol/L (136-145)
[2017-06-16 05:55] LABS: #Lymphocytes 1.1 thou/uL (1.20-3.40); #Monocytes 0.4 thou/uL (0.11-0.59); #Neutrophils 6.1 thou/uL (1.40-6.50); %Basophils 0.1 % (0.0-1.0); %Eosinophils 0.3 % (0.0-10.0); %Monocytes 5.6 % (0.0-10.0); Hemoglobin 9.2 g/dL (12.0-16.0); Mean Corpuscular HGB CONC 33.9 g/dL (32.0-36.0); Mean Corpuscular Hemoglobin 32.4 pg (27.0-31.0); Mean Corpuscular Volume 95.4 fl (81.0-99.0); Mean Platelet Volume 6.7 fL (7.4-10.4); Platelet Count 273 thou/uL (130-400); RBC Distribution Width 13.4 % (11.5-14.5); Red Blood Cell (RBC) Count 2.84 mill/uL (4.20-5.40); White Blood Cell (WBC) Count 7.7 thou/uL (4.8-10.8)
[2017-06-16] MEDS ORDERED: Iron Dextran 500 MG in Sodium Chloride 0.9% 250 ML IVPB SCH (09:00)
[2017-06-16] MEDS: Furosemide 20 MG TAB PO SCH (09:07)
[2017-06-16] MEDS: Docusate 100 MG CAP PO SCH (09:07)
[2017-06-16] MEDS: Cefdinir 300 MG CAP PO SCH (09:07)
[2017-06-16] MEDS: predniSONE 20 MG TAB PO SCH (09:07)
[2017-06-16] MEDS: Enoxaparin Sodium 30 MG/0.3 ML SYRINGE SC SCH (09:08)
[2017-06-16] MEDS: Potassium Chloride 10 MEQ TAB PO SCH (10:09)
[2017-06-16 12:19] VITALS: BMI 24.5
[2017-06-16 13:01] VITALS: BP 119/59; TEMP 97.4
--- NOTE | 2017-06-20 12:34 | DIS ---
For details of the history and physical and the consultative notes, refer to dictations on record. SUMMARY: An 87-year-old female patient who presented here with shortness of breath, got diagnosed wi th pneumonitis, was seen in consultation by Pulmonary and Critical Care Service. The patient was als o seen by Cardiology and the diagnosis of diastolic congestive heart failure was made. The patient w as started on IV Lasix and Cardiology evaluated the patient. Pulmonary Critical Care got involved be cause of pulmonary failure with evidence of possible pneumonitis. Pertinent investigations including CAT scan that showed an area of low blood filling defect in the pu lmonary arterial system. This is suspicious for tumor invasion or tumor embolus, extensive multifoca l consolidation, possibly in the context of atypical multifocal bilateral pneumonia. The patient hav ing maintained sustained clinical improvement, was subsequently discharged on the following medicatio ns: Omnicef 300 mg p.o. b.i.d., Lasix 20 mg p.o. daily, prednisone 40 mg p.o. daily. DISCHARGE INSTRUCTIONS: 1. Follow up with Cardiology. 2. Follow up with the Pulmonary Service. 3. Follow up with primary care physician for compliant with medication. 4. Represent here in case of any relapse or deterioration in clinical condition. Total time spent including [id number] encounter 31 minutes.
== END 2017-06-16 15:00 | disposition home health service (06) | DRG 291 ==
LOC: ERS 13:38 → ERHOLD 15:26 → 2NO 21:16
PROVIDERS: ADMIT Emergency Medicine; ATTEND Emergency Medicine
DX: I13.0 Hypertensive heart and chronic kidney disease with heart failure and stage 1 through stage 4 chronic kidney disease, or unspecified chronic kidney disease (principal); J96.01 Acute respiratory failure with hypoxia; N17.9 Acute kidney failure, unspecified; J18.9 Pneumonia, unspecified organism; I27.20 Pulmonary hypertension, unspecified; D64.9 Anemia, unspecified; N18.3 Chronic kidney disease, stage 3 (moderate); I34.0 Nonrheumatic mitral (valve) insufficiency; I50.33 Acute on chronic diastolic (congestive) heart failure; I28.9 Disease of pulmonary vessels, unspecified; R54 Age-related physical debility; B34.8 Other viral infections of unspecified site; Z95.0 Presence of cardiac pacemaker; Z87.891 Personal history of nicotine dependence; Z86.711 Personal history of pulmonary embolism
CPT/HCPCS: 36415; 71045; 71046; 71275; 80048; 82728; 82805; 83520; 83540; 83550; 83735; 84100; 85025; 85379; 86160; 86225; 86235; 86376; 86430; 86431; 87389; 87633; 87798; 93306; 93798; 94760; A4216; G8978-GP-CK; G8979-GP-CI; G8987-GO-CM; G8988-GO-CJ; J0696; J1650; J1750; J1940; J7050; J7506

== ENCOUNTER 2017-07-05 13:24 | Outpatient (CLI) | payer MEDICARE, MEDICAID ==
--- NOTE | 2017-07-05 14:00 | RAD ---
TWO VIEWS OF THE CHEST: COMPARISON: 06/17/17. HISTORY: Dyspnea. FINDINGS: Two views of the chest show an enlarged but stable cardiomediastinal silhouette. There is a pacemake r lead in the right atrium and ventricle. Increased interstitial lung markings are present. There a ppear to be superimposed airspace opacities projecting over the bilateral upper left lower lobe. IMPRESSION: Multifocal infiltrates. POS: [facility]
== END 2017-07-05 13:25 | disposition home or self-care (01) ==
LOC: RAD 13:24
PROVIDERS: ATTEND Internal Medicine
DX: R06.00 Dyspnea, unspecified (principal); R91.8 Other nonspecific abnormal finding of lung field
CPT/HCPCS: 71046

== ENCOUNTER 2017-08-29 10:55 | Outpatient (CLI) | payer MEDICARE, MEDICAID ==
--- NOTE | 2017-08-29 13:06 | RAD ---
TWO VIEWS CHEST: Date: 08-29-17 Comparison: 07-05-17 History: Dyspnea. FINDINGS: There is nonspecific diffuse increased linear interstitial density with a perihilar/bibasilar predomi nance. There is subtle ground glass opacity/alveolar opacity in both upper lobes, slightly improved w hen compared to 07-05-17. There is hazy increased ground glass opacity noted in bilateral lung bases a s well, left greater than right. No large volume pleural effusion. Small volume pleural fluid is diff icult to exclude. IMPRESSION: Extensive interstitial opacity with superimposed ground glass opacity in the upper lobes and both deepa g bases, slightly improved since the prior exam. Continued follow up is advised. Findings may be bett er assessed via chest CT as clinically warranted. Atypical infectious process and/or malignancy is a possibility. POS: [facility]
== END 2017-08-29 10:56 | disposition home or self-care (01) ==
LOC: RAD 10:55
PROVIDERS: ATTEND Internal Medicine
DX: R06.00 Dyspnea, unspecified (principal); R91.8 Other nonspecific abnormal finding of lung field
CPT/HCPCS: 71046